=== PATIENT | male | born 1970 | race Caucasian/White ===

== ENCOUNTER → 2021-05-23 | Emergency (ER) | payer OTHER ==
[~2021-05-23] VITALS: Ht 170.2 cm; Wt 81.6 kg
--- NOTE | 2021-05-24 12:01 | EKG ---
[facility] [address] [facility] [place] [address] Signed Normal sinus rhythm Nonspecific intraventricular conduction delay Borderline ECG No previous ECGs available Confirmed by OPAL DELCID DO ([id number]) on 05/24/2021 12:00:49 PM Electronically Signed By: OPAL DELCID DO 05/24/21 1201 PATIENT NAME: RANJIT MOHAMUDTAMARA Electrocardiogram DATE OF : 70 PHYSICIAN: OPAL DELCID DO REPORT #: [id number] REPORT IS CONFIDENTIAL AND NOT TO BE RELEASED WITHOUT AUTHORIZATION
== END | disposition home or self-care (01) ==
LOC: ED 16:52
DX: I61.5 Nontraumatic intracerebral hemorrhage, intraventricular (principal)
CPT/HCPCS: 31500; 36600; 51702; 70450; 70496; 70498; 71045; 80053; 82803; 85025; 85610; 85730; 93005; 93010; 94002; 99285-25; J2704; J7060; Q3014; Q9967; U0003